=== PATIENT | female | born 1960 | race Caucasian/White ===

== ENCOUNTER 2020-05-18 14:54 | Outpatient (RCR) | payer MEDICAID ==
[~2020-05-18 14:54] MED LIST: CETI10TA; IBUP600T; SING10TA31; VENTAER
== END 2020-05-24 ==
LOC: M PT 14:54
PROVIDERS: ATTEND Nurse Practitioner
DX: D05.11 Intraductal carcinoma in situ of right breast (principal); Z90.13 Acquired absence of bilateral breasts and nipples

== ENCOUNTER → 2020-05-25 | Outpatient (REF) | payer MEDICAID | LOC: M LAB REF 12:27 | PROVIDERS: ATTEND Nurse Practitioner Adult Health | DX: R19.7 Diarrhea, unspecified (principal) ==

== ENCOUNTER 2020-06-20 03:26 | Emergency (ER) | payer MEDICAID ==
[~2020-06-20] VITALS: Ht 160 cm; Wt 73.6 kg
[2020-06-20] MEDS ORDERED: ZOFR4TAB16 PO (03:32)
[2020-06-20] MEDS ORDERED: [UNRECOGNIZED DRUG - OTHER] (03:32)
[2020-06-20] MEDS ORDERED: DIFI200T PO (03:32)
[2020-06-20] MEDS ORDERED: TUMS500C PO (03:32)
[2020-06-20] MEDS ORDERED: PEPC1TAB5 PO (03:32)
[2020-06-20] MEDS ORDERED: NS 1,000 ML IV ONE (03:45)
[2020-06-20 04:22] LABS: HEMATOCRIT 37.5 % (36.0-47.0); MEAN CORPUSCULAR HEMOGLOBIN 28.6 pg (27.0-33.0); MEAN CORPUSCULAR VOLUME 89.3 fl (80.0-96.0); PLATELET COUNT, AUTOMATED 227 10^3/uL (150-450); WHITE BLOOD COUNT 5.6 10^3/uL (4.0-10.0)
[2020-06-20] MEDS ORDERED: METOCLOPRAMIDE INJ 10MG/2ML VIAL (J2765 PER 1) IV ONE (04:30)
[2020-06-20] MEDS ORDERED: MORPHINE 4 MG/ML 1ML VIAL/SYRINGE (J2270) IV PRN (04:30)
[2020-06-20 04:38] LABS: ATYPICAL LYMPH 2 % (0-5); BASOPHILS 1 % (0-1); EOSINOPHILS 5 % (0-3); LYMPHOCYTES 31 % (16-44); MONOCYTES 4 % (0-5); NEUTROPHILS 57 % (28-66)
[2020-06-20 04:39] LABS: PLATELET ESTIMATE NORMAL (NORMAL)
[2020-06-20] MEDS ORDERED: ISOVUE-370 76% 100ML VIAL As Ordered ONE (04:48)
[2020-06-20 04:55] LABS: ALBUMIN 3.6 GM/DL (3.2-5.2); ALT/SGPT 41 U/L (12-78); BILIRUBIN,DIRECT 0.1 MG/DL (0.0-0.2); BILIRUBIN,TOTAL 0.4 MG/DL (0.2-1.0); CK-MB VALUE MASS 2.2 NG/ML (<3.6); CPK CREATINE PHOSPHOKINASE 297 U/L (26-192); LIPASE 146 U/L (73-393); MB/CK RELATIVE INDEX 0.74 (< OR =4); TROPONIN I < 0.02 NG/ML (< 0.10)
[2020-06-20] MEDS ORDERED: HYOSCYAMINE SULFATE 0.125 MG SUBL TABLET PO ONE (06:30)
[2020-06-20] MEDS ORDERED: OXYCODONE/APAP 5MG/325MG(BULK FOR ED) 1 TABLET PO ONE (06:30)
[2020-06-20] MEDS ORDERED: LEVS0.124 SL (06:30)
[2020-06-20 07:19] VITALS: BP 120/65
--- NOTE | 2020-06-21 05:32 | ECGEPIP ---
[facility] - ED Test Date: 2020-06-20 Pat Name: September Department: Room: - Gender: Female Tobacco Sorter: : 1960 Requested By: THONY King Order Number: [id number] Reading MD: Quan Estevez Measurements Intervals [place] Rate: 55 P: 14 NH: 133 QRS: 42 QRSD: 92 T: 54 QT: 418 QTc: 402 Interpretive Statements SINUS BRADYCARDIA NO PRIORS FOR COMPARISON Electronically Signed on 06-21-2020 5:31:50 EST by Quan Estevez
--- NOTE | 2020-06-21 08:20 | REP ---
INDICATION: MIGRATORY ABD PAIN, N/V. COMPARISON: None TECHNIQUE: Axial contrast-enhanced images from the lung bases to the pubic symphysis using 100 cc Isovue 370 intravenous contrast material. Coronal and sagittal reformations obtained. This CT examination was performed using the following dose reduction techniques: Automated exposure control, adjustment of mA and/or kv according to the patient's size, and the use of iterative reconstruction technique. FINDINGS: Gallbladder demonstrates wall thickening, mild pericholecystic fluid, and cholelithiasis consistent with acute cholecystitis. Liver demonstrates hepatosteatosis. Spleen, pancreas, bilateral adrenal glands and left kidney appear normal. Right kidney includes multiple nonobstructing calculi measuring up to 5 mm. The enteric system demonstrates small hiatal hernia at the gastroesophageal junction along with mild fecal stasis. No evidence for bowel obstruction or acute inflammatory process. Scattered colonic and sigmoid diverticula noted without acute diverticulitis. Pelvis demonstrates normal bladder and age-appropriate uterus/adnexa. No ascites. No free air. No significant adenopathy. Abdominal aorta without aneurysm or dissection. Musculoskeletal structures demonstrate degenerative changes. Lung bases are clear. IMPRESSION: 1. Findings consistent with acute cholecystitis. 2. Nonobstructing right renal calculi. 3. Diverticulosis without acute diverticulitis. 4. Small hiatal hernia. NOTE: Preliminary report from the overnight service sent to the ER at 06/20/2020 5:27 a.m. a.m. <Electronically signed by Gunnar Moore > 06/21/20 0812
--- NOTE | 2020-06-21 08:28 | REP ---
INDICATION: ruq abd pain. Repeat dictation. Preliminary report is provided at the time of the exam by charles NEAL. COMPARISON: Comparison CT study abdomen pelvis 06/20/2020.. TECHNIQUE: Right upper quadrant sonography. FINDINGS: Scanning through the right upper quadrant of the abdomen demonstrates multiple shadowing gallstones within the gallbladder. Gallbladder wall is not visibly thickened. There is no tenderness to scanning over the gallbladder observed. No pericholecystic fluid is seen. Evidence of fatty infiltration of the liver is observed. The common bile duct is somewhat dilated measuring 9 mm however. No choledocholithiasis is seen by sonography. The stones within the lumen of the gallbladder are large. Up to 2.0 cm. No intrahepatic ductal dilation is seen. Limited views of pancreas show no abnormality. There is no evidence of ascites or right renal abnormality. The right kidney measures 10.5 x 4.2 x 4.3 cm. . IMPRESSION: Cholelithiasis with multiple fairly large gallstones within the gallbladder. Fatty infiltration of the liver. Mild dilation of the common bile duct, 9 mm. Otherwise negative.. <Electronically signed by Earl Friedman > 06/21/20 0853
== END 2020-06-20 07:18 | disposition home or self-care (01) ==
LOC: M ED 03:26
DX: K80.00 Calculus of gallbladder with acute cholecystitis without obstruction (principal); N20.0 Calculus of kidney; K57.30 Diverticulosis of large intestine without perforation or abscess without bleeding; K44.9 Diaphragmatic hernia without obstruction or gangrene; R11.10 Vomiting, unspecified; R00.1 Bradycardia, unspecified; Z90.13 Acquired absence of bilateral breasts and nipples; Z88.0 Allergy status to penicillin; Z88.1 Allergy status to other antibiotic agents; Z91.010 Allergy to peanuts; Z79.899 Other long term (current) drug therapy
CPT/HCPCS: 74177; 76705; 80047; 80076; 82550; 82553; 83690; 85025; 93005; 93041; 96361; 96374; 96375; 99285; J2270; J2765; Q9967

== ENCOUNTER → 2020-11-13 | Outpatient (CLI) | payer MEDICAID ==
[~2020-11-13] MED LIST changes: +CETI-24 PO; +DIFI200T PO; +FAMO40TA3 PO; +LEVS0.124 SL; +MONT10TA10 PO; +PEPC1TAB5 PO; +TUMS500C PO; +ZOFR4TAB16 PO; +[UNRECOGNIZED DRUG - OTHER]
== END ==
LOC: M LABSMTC 09:05
PROVIDERS: ATTEND Anesthesiology
DX: Z01.818 Encounter for other preprocedural examination (principal); Z11.52 Encounter for screening for COVID-19

== ENCOUNTER 2020-11-18 08:33 | Day surgery (SDC) | payer MEDICAID ==
[~2020-11-18] VITALS: Ht 160 cm; Wt 69.8 kg
[~2020-11-18 08:33] MED LIST changes: +NS 1,000 ML IV ONE
[2020-11-18] MEDS ORDERED: propofoL 200 MG/20 ML VIAL As Ordered ONE ×3 (10:05→10:28)
[2020-11-18] MEDS ORDERED: LIDOCAINE 2% 100MG/5ML SDV (FOR ANES.) As Ordered ONE (10:05)
--- NOTE | 2020-11-18 10:32 | ROOR ---
Patient Name: September Procedure Date: 11/18/2020 10:11 AM Date of : 1960 Age: 60 Room: [facility] Gender: Female Note Status: Finalized Procedure: Colonoscopy Indications: High risk colon cancer surveillance: Personal history of colonic polyps Providers: Noah Alejo Jr, MD Referring MD: Jey Arreaga MD Requesting Provider: Medicines: Propofol per Anesthesia Complications: No immediate complications. Procedure: Pre-Anesthesia Assessment: - Prior to the procedure, a History and Physical was performed, and patient medications and allergies were reviewed. The patient is competent. The risks and benefits of the procedure and the sedation options and risks were discussed with the patient. All questions were answered and informed consent was obtained. Patient identification and proposed procedure were verified by the physician and the nurse in the pre-procedure area and in the procedure room. Mental Status Examination: alert and oriented. Airway Examination: normal oropharyngeal airway and neck mobility. Respiratory Examination: clear to auscultation. CV Examination: normal. ASA Grade Assessment: II - A patient with mild systemic disease. After reviewing the risks and benefits, the patient was deemed in satisfactory condition to undergo the procedure. The anesthesia plan was to use moderate sedation / analgesia (conscious sedation). Immediately prior to administration of medications, the patient was re-assessed for adequacy to receive sedatives. The heart rate, respiratory rate, oxygen saturations, blood pressure, adequacy of pulmonary ventilation, and response to care were monitored throughout the procedure. The physical status of the patient was re-assessed after the procedure. The Colonoscope was introduced through the anus and advanced to the cecum, identified by appendiceal orifice and ileocecal valve. The colonoscopy was performed without difficulty. The patient tolerated the procedure well. The quality of the bowel preparation was adequate. Findings: The rectum, descending colon, transverse colon, ascending colon, cecum, appendiceal orifice and ileocecal valve appeared normal. A few small and large-mouthed diverticula were found in the sigmoid colon. A diminutive polyp was found in the recto-sigmoid colon. The polyp was sessile. The polyp was removed with a jumbo cold forceps. Resection and retrieval were complete. Impression: - The rectum, descending colon, transverse colon, ascending colon, cecum, appendiceal orifice and ileocecal valve are normal. - Diverticulosis in the sigmoid colon. - One diminutive polyp at the recto-sigmoid colon, removed with a jumbo cold forceps. Resected and retrieved. Recommendation: - Discharge patient to home (ambulatory). - Repeat colonoscopy in 5 years for surveillance. - Telephone my office for pathology results in 1 week. Procedure Code(s): --- Professional --- 58162, Colonoscopy, flexible; with biopsy, single or multiple Diagnosis Code(s): --- Professional --- Z86.010, Personal history of colonic polyps K63.5, Polyp of colon K57.30, Diverticulosis of large intestine without perforation or abscess without bleeding CPT copyright 2019 [employer]. All rights reserved. The codes documented in this report are preliminary and upon machine finisher review may be revised to meet current compliance requirements. Noah Alejo MD Noah Alejo Jr, MD 11/18/2020 10:31:57 AM Electronically signed by Noah Alejo Jr, MD Number of Addenda: 0 Note Initiated On: 11/18/2020 10:11 AM Estimated Blood Loss: Estimated blood loss: none.
[2020-11-18 11:00] VITALS: BP 143/81
== END 2020-11-18 11:05 | disposition home or self-care (01) ==
LOC: M OPP 08:33
PROVIDERS: ATTEND Surgery
DX: Z86.010 Personal history of colon polyps (principal); K63.5 Polyp of colon; K57.30 Diverticulosis of large intestine without perforation or abscess without bleeding; K21.9 Gastro-esophageal reflux disease without esophagitis; J45.909 Unspecified asthma, uncomplicated; Z86.19 Personal history of other infectious and parasitic diseases; Z85.3 Personal history of malignant neoplasm of breast; Z88.0 Allergy status to penicillin; Z88.1 Allergy status to other antibiotic agents; Z91.010 Allergy to peanuts; Z79.899 Other long term (current) drug therapy

== ENCOUNTER 2020-12-29 07:29 | Inpatient (IN) | payer MEDICAID ==
[~2020-12-29] VITALS: Ht 160 cm; Wt 73.9 kg
[~2020-12-29 07:29] MED LIST changes: -NS 1,000 ML IV ONE
[2020-12-29] MEDS ORDERED: HYOS0.1258 PO (07:38)
[2020-12-29] MEDS ORDERED: ONDA4TAB6 PO (07:38)
[2020-12-29] MEDS ORDERED: OXYC1TAB23 PO (07:38)
[2020-12-29] MEDS ORDERED: NS 1,000 ML IV ONE (08:00)
[2020-12-29] MEDS ORDERED: MORPHINE 4 MG/ML 1ML VIAL/SYRINGE (J2270) IV ONE (08:00)
[2020-12-29] MEDS ORDERED: ONDANSETRON 4MG/2ML VIAL IV ONE (08:00)
[2020-12-29 08:01] LABS: BASO # 0.1 10^3/uL (0.0-0.2); BASO % 0.6 % (0.0-1.0); EOS # 0.1 10^3/uL (0.0-0.5); EOS % 0.6 % (0.0-3.0); HEMATOCRIT 41.8 % (36.0-47.0); HEMOGLOBIN 13.8 g/dl (12.0-15.5); LYMPH % 21.9 % (24.0-44.0); MEAN CORPUSCULAR VOLUME 87.8 fl (80.0-96.0); MONO # 0.5 10^3/uL (0.0-0.8); MONO % 5.6 % (2.0-8.0); NEUTROPHILS # 6.4 10^3/uL (1.5-8.5); NEUTROPHILS % 71.1 % (36.0-66.0); PLATELET COUNT, AUTOMATED 262 10^3/uL (150-450); RED BLOOD COUNT 4.76 10^6/uL (4.00-5.40); WHITE BLOOD COUNT 8.9 10^3/uL (4.0-10.0)
[2020-12-29] MEDS ORDERED: ISOVUE-370 76% 100ML VIAL As Ordered ONE (08:05)
--- NOTE | 2020-12-29 08:39 | REP ---
INDICATION: abdominal pain. COMPARISON: 06/20/2020 TECHNIQUE: Axial contrast-enhanced images from the lung bases to the pubic symphysis using 100 cc Isovue 370 intravenous contrast material. Coronal and sagittal reformations obtained. This CT examination was performed using the following dose reduction techniques: Automated exposure control, adjustment of mA and/or kv according to the patient's size, and the use of iterative reconstruction technique. FINDINGS: Liver demonstrates diffuse fatty infiltration without focal hepatic lesion. Spleen, pancreas, bilateral adrenal glands and left kidney are normal. Right kidney includes 1 cm hypodensity suggesting cyst and intrarenal calculi up to 8 mm without hydroureteronephrosis or obstructing ureteral calculus. Cholelithiasis noted without acute cholecystitis by CT. The enteric system including stomach, small, and large bowel appears normal. No evidence for obstruction or acute inflammatory process. Normal terminal ileum and appendix are identified in the right lower quadrant. Diverticulosis noted without acute diverticulitis. Pelvis demonstrates normal bladder and age-appropriate uterus/adnexa. No ascites. No free air. No intraperitoneal or retroperitoneal adenopathy. Abdominal aorta and vasculature appear normal. Musculoskeletal structures are intact and without acute osseous abnormality. IMPRESSION: 1. Hepatosteatosis. 2. Diverticulosis. 3. Cholelithiasis. 4. Right renal cyst and nonobstructing right renal calculi up to 8 mm. 5. No acute abdominopelvic pathology appreciated. <Electronically signed by Gunnar Moore > 12/29/20 0856
[2020-12-29 08:48] LABS: ALBUMIN 4.2 GM/DL (3.2-5.2); ALT/SGPT 31 U/L (12-78); BILIRUBIN,DIRECT 0.1 MG/DL (0.0-0.2); BILIRUBIN,TOTAL 0.5 MG/DL (0.2-1.0); CK-MB VALUE MASS < 1.0 NG/ML (<3.6); CPK CREATINE PHOSPHOKINASE 219 U/L (26-192); LIPASE 117 U/L (73-393); MB/CK RELATIVE INDEX 0.46 (< OR =4); TOTAL PROTEIN 8.1 GM/DL (6.4-8.2); TROPONIN I < 0.02 NG/ML (< 0.10)
--- NOTE | 2020-12-29 10:21 | REP ---
INDICATION: abdominal pain/age COMPARISON: None. TECHNIQUE: PA and lateral. FINDINGS: The mediastinum and cardiac silhouette are normal. The lung weir are clear and without acute consolidation, effusion, or pneumothorax. The skeletal structures are intact and normal. IMPRESSION: No acute cardiopulmonary process. <Electronically signed by Gunnar Moore > 12/29/20 1014
[2020-12-29] MEDS ORDERED: KETOROLAC 30 MG/ML 1ML VIAL IV ONE (11:25)
--- NOTE | 2020-12-29 11:55 | REP ---
INDICATION: abdominal pain. COMPARISON: 03/16/2011 TECHNIQUE: Transvesical and transvaginal imaging FINDINGS: The uterus measures 4.6 x 2.8 x 4 cm. The parenchymal echo pattern is unchanged. Once again, there is a small fibroid in the posterior uterus. The endometrial echo complex is smooth and unremarkable appearing measuring 1 mm in its greatest thickness. Urinary bladder measures 7 x 4 x 7 cm. The right ovary measures 1.6 x 0.6 x 1.3 cm and is within normal limits. The left ovary was not visualized transvesical air transvaginally. IMPRESSION: No significant change from the prior exam. Stable uterine myomatous change. No acute abnormality identified. <Electronically signed by Ion Beal > 12/29/20 [id number]
--- NOTE | 2020-12-29 12:23 | REP ---
INDICATION: abdominal pain. COMPARISON: 06/20/2020. TECHNIQUE: Real-time sonographic evaluation of right upper quadrant performed. FINDINGS: There are multiple gallstones in the gallbladder without evidence of gallbladder wall thickening. Sludge is also seen in the gallbladder. There is a 2 cm gallstone at the neck of the gallbladder which is not mobile.. The common bile duct is mildly dilated at 9 mm, similar to the prior study. Liver demonstrates diffuse increased echotexture suggesting diffuse fatty infiltration. No focal liver mass is seen. The visualized pancreas demonstrates no gross mass, pancreatic tail is not well seen due to overlying bowel gas. The right kidney demonstrates no hydronephrosis, with a normal size of 10.4 cm in length. The right renal pelvis appears mildly dilated and contains an a calculus 1.1 cm in diameter. A cyst in the upper pole right kidney measures 6 mm in diameter and a cyst in the lower pole measures 1.3 cm in diameter.No free fluid is seen. IMPRESSION: Sludge and multiple stones in the gallbladder, with no gallbladder wall thickening. There is a 2 cm nonmobile gallstone at the neck of the gallbladder. Once again the common bile duct is mildly dilated up to 9 mm, as on prior exam. No free fluid. Right renal pelvis is mildly dilated and contains a 1.1 cm calculus with no overt right hydronephrosis. <Electronically signed by Adam Morel > 12/29/20 [id number]
[2020-12-29] MEDS ORDERED: ACETAMINOPHEN TAB 650MG DOSE (2X325MG) PO PRN (14:45)
[2020-12-29] MEDS ORDERED: ONDANSETRON 4MG/2ML VIAL IV PRN (14:45)
[2020-12-29] MEDS ORDERED: KETOROLAC 30 MG/ML 1ML VIAL IV PRN (14:50)
[2020-12-29] MEDS ORDERED: CALC500T31 PO (14:55)
[2020-12-29] MEDS: LR 1,000 ML IV SCH (15:01)
[2020-12-29] MEDS: MORPHINE 4 MG/ML 1ML VIAL/SYRINGE (J2270) IV PRN ×2 (15:10→17:16)
[2020-12-29 17:03] VITALS: BP 145/62
[2020-12-29] MEDS ORDERED: MORPHINE 2 MG/ML 1ML VIAL (J2270) IV ONE (18:40)
[2020-12-29] MEDS ORDERED: MORPHINE 4 MG/ML 1ML VIAL/SYRINGE (J2270) IV PRN (20:00)
[2020-12-29] MEDS ORDERED: ERTAPENEM SODIUM 1 GM in NS MINI-BAG PLUS 50 ML IV SCH (21:00)
[2020-12-29 22:00] VITALS: BP 126/60
[2020-12-30] VITALS (9 sets, daily range): BP systolic 109–134; BP diastolic 57–70
[2020-12-30] MEDS: LR 1,000 ML IV SCH ×3 (01:10→21:05)
[2020-12-30] MEDS: KETOROLAC 30 MG/ML 1ML VIAL IV SCH ×3 (01:13→12:34)
[2020-12-30 06:24] LABS: BASO % 0.5 % (0.0-1.0); EOS # 0.1 10^3/uL (0.0-0.5); EOS % 1.8 % (0.0-3.0); HEMATOCRIT 37.4 % (36.0-47.0); HEMOGLOBIN 11.9 g/dl (12.0-15.5); LYMPH # 1.8 10^3/uL (1.5-5.0); MEAN CORPUSCULAR HGB CONC 31.8 g/dl (32.0-36.5); MEAN CORPUSCULAR VOLUME 91.2 fl (80.0-96.0); MONO # 0.7 10^3/uL (0.0-0.8); MONO % 9.9 % (2.0-8.0); NEUTROPHILS % 60.5 % (36.0-66.0); PLATELET COUNT, AUTOMATED 192 10^3/uL (150-450); WHITE BLOOD COUNT 6.6 10^3/uL (4.0-10.0)
[2020-12-30 06:56] LABS: ALBUMIN 3.2 GM/DL (3.2-5.2); ALT/SGPT 35 U/L (12-78); BILIRUBIN,TOTAL 0.7 MG/DL (0.2-1.0); BLOOD UREA NITROGEN 12 MG/DL (7-18); CALCIUM LEVEL 8.5 MG/DL (8.5-10.1); CARBON DIOXIDE LEVEL 25 MEQ/L (21-32); CHLORIDE LEVEL 110 MEQ/L (98-107); CREATININE FOR GFR 0.53 MG/DL (0.55-1.30); GLOMERULAR FILTRATION RATE > 60.0 (>51); GLUCOSE, FASTING 92 MG/DL (70-100); POTASSIUM SERUM 3.9 MEQ/L (3.5-5.1); SODIUM LEVEL 144 MEQ/L (136-145); TOTAL PROTEIN 6.3 GM/DL (6.4-8.2)
--- NOTE | 2020-12-30 08:24 | HPE ---
HISTORY AND PHYSICAL DATE OF ADMISSION: 12/29/2020 REASON FOR HOSPITALIZATION: Abdominal pain, probable acute cholecystitis. HISTORY OF PRESENT ILLNESS: The patient is a 60-year-old woman who had developed upper abdominal pain with associated vomiting at about 10:00 p.m. on the 28 of December. She reported having persistent pain overnight with some ongoing vomiting. She described the pain as severe but crampy with some waxing and waning. She denied any history of diarrhea. She did have some formed stool overnight. She did not have definite fevers or chills. She had no hematemesis. The pain persisted and became quite severe and she presented to the Emergency Department at approximately 7:30 in the morning of the 29 of December. She apparently was crying out and writhing in pain at the time of her presentation according to the P.A. in the E.R. She underwent evaluation including blood work and then had a CT scan of the abdomen and pelvis. She subsequently underwent an ultrasound of the pelvis as well as an ultrasound of the right upper quadrant. Her laboratory studies were largely unremarkable with a white count of 9,000 and 71% neutrophils. Chemistries showed normal electrolytes with the exception of glucose slightly elevated at 134 and she have liver function tests that were normal. Her CT scan of the abdomen and pelvis confirmed cholelithiasis. She had been seen in the Emergency Department once in May for a left severe and briefer episode of pain and at that time she had had an ultrasound that showed cholelithiasis as well. On her CT scan today, she was noted to have cholelithiasis but there were not definite changes of acute cholecystitis according to the radiologist. Some diverticulosis of the colon was noted without any evidence of diverticulitis and there was a small right renal calculus noted that was not felt to be obstructing. Her gallbladder ultrasound revealed multiple gallstones in the gallbladder with a non mobile 2 cm gallstone noted in the neck of the gallbladder. The radiologist did not feel that there was significant gallbladder wall thickening. The radiologist also noted that the right renal pelvis appeared mildly dilated and contained a 1.1 cm calculus without any overt right hydronephrosis. She had an ultrasound of the pelvis as well which showed no concerning findings with some stable myomatous changes in the uterus. I was consulted. MEDICATIONS: The patient's current medications include: 1. Calcium Carbonate 500 mg p.o. daily. 2. Cetirizine 10 mg p.o. daily. 3. Famotidine 40 mg p.o. daily. 4. Montelukast 10 mg p.o. daily. ALLERGIES: 1. Penicillins. 2. Quinolones. 3. Clarithromycin. 4. Peanuts. MEDICAL HISTORY: The patient's past medical history is significant for: 1. A history of asthma. 2. She has a history of some gastroesophageal reflux disease. 3. She had a recent colonoscopy that showed some diverticulosis. 4. 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 She apparently suffered from either infection or necrosis of the skin bilaterally requiring explantation of her implants and a long course of healing. SURGICAL HISTORY: The patient's past surgical history is significant for: 1. Her bilateral mastectomy and her subsequent reconstructions and explantation of her implants. 2. She also had a uterine ablation that is an endometrial ablation several years ago for heavy periods. FAMILY HISTORY: The patient's family history shows hypertension in her mother and COPD in her mother as well. REVIEW OF SYSTEMS: The patient's review of systems shows no history of severe headaches or seizures. She denies chest pain, palpitations, shortness of breath, wheezing, cough or sputum production. She has no history of peptic ulcer disease, GI bleed. She has had one prior episode of lesser discomfort approximately 6 months ago. There is no history of dysuria or hematuria, and she denies any prior history of renal stones. She has no history of DVT or pulmonary embolus. She denies any serious problems with the extremities. PHYSICAL EXAMINATION: VITAL SIGNS: In the Emergency Department her vital signs showed her to be afebrile with a pulse in the 60's, a blood pressure of 130/78 and normal pulse oximetry. SKIN: Warm and dry. HEENT: Sclerae are anicteric. Mucous membranes are moist. NECK: Supple without mass. HEART: Regular rate and rhythm. LUNGS: Clear to auscultation bilaterally. ABDOMEN: Flat. Bowel sounds present. No evident hernia. No tympani to percussion or tenderness to percussion. On palpation she had some moderate tenderness to direct palpation, particularly in the right upper quadrant, about at the level of the mid clavicular line, perhaps 3-5 cm inferior to the costal margin. No mass is appreciated. She has some lesser discomfort slightly lower in the abdomen and more toward the middle. EXTREMITIES: Without peripheral edema. Intact radial and pedal pulses. LABORATORY STUDIES: CBC showing a white count of 9, hemoglobin 14 with a hematocrit of 42% and 262,000 platelets. Differential shows 71% neutrophils and 22% lymphocytes. Chemistry profile shows sodium of 134, normal electrolytes. BUN and creatinine were normal and her other chemistries including her liver function tests are all normal. Lipase was 117. Urinalysis was without concerning findings other than a specific gravity greater than 1.060 with 1+ blood but a negative nitrite and leukocyte esterase. COVID serology was negative. IMAGING: Her imaging studies were as reported in the history of the present illness and were most notable for cholelithiasis with a large stone immobile in the gallbladder neck. Neither the CT nor ultrasound was interpreted as showing significant thickening of the gallbladder wall. IIMPRESSION: The patient's history and findings seem most consistent with acute cholecystitis. She has had pain for greater than 12 hours at the time of my exam and remains tender in the general region of the gallbladder. The laboratory studies are unremarkable but her imaging does show an immobile gallstone in the gallbladder neck. On my review of her imaging, I think there may be some very slight thickening in the gallbladder wall noted, particularly on the ultrasound. PLAN: The patient will be brought into the hospital for management of her severe pain which has required Morphine in the Emergency Department. She will be started on antibiotics. Because of the lack of significant gallbladder wall thickening on imaging and also the presence of the right renal stone with the suggestion that there might be some slight dilation of the renal pelvis on the right, I am going to obtain a nuclear biliary scan to confirm the diagnosis of acute cholecystitis. I counseled her that if the HIDA scan confirms non filling of the gallbladder that we should proceed with laparoscopic cholecystectomy. I advised her that I think this is the most likely outcome of her study. She had an opportunity to ask questions. She will be started on some Toradol and Morphine, both on a p.r.n. basis for pain management. She will receive some ongoing fluid replacement but will remain n.p.o. I will make some Zofran available in the event of persistent nausea. The patient had an opportunity to ask questions and these were answered to the best of my ability. She is in agreement with the plan.
--- NOTE | 2020-12-30 08:38 | IPNPDOC ---
Text Note Date of Service The patient was seen on 12/30/20. NOTE General surgery. Dr. Gamble The patient is a 60-year-old female admitted 12/29/2020 with acute cholecystitis. This morning, the patient states she has not had any nausea/vomiting, she has not used any Zofran. She states right upper quadrant pain is much improved, she feels sore this morning. Reports Toradol has been controlling pain. She currently is n.p.o. for HIDA scan this morning. Afebrile. VSS General. Awake and alert, resting in bed, appears in no acute distress. MMM S1-S2 regular rate rhythm Lungs are clear to auscultation bilaterally. Abdomen is flat, soft, bowel sounds present, mild tenderness with palpation in the right upper but no guarding or rebound. No edema WBC 6.6, hemoglobin 11.9, platelets 192. LFTs WNL. Assessment/plan Acute cholecystitis The patient is reviewed with Dr. Gamble. Continue n.p.o., HIDA scan is planned for this morning. Reports pain is improved. Denies nausea or vomiting. Continue IVF 100cc/hr Continue ertapenem IV. VS,Fishbone, I+O VS, Fishbone, I+O Laboratory Tests 12/30/20 05:59 Vital Signs Date Time Temp Pulse Resp B/P (MAP) Pulse Ox O2 Delivery O2 Flow Rate FiO2 12/30/20 06:00 97.2 47 16 116/62 (80) 98 Room Air I&O- Last 24 Hours up to 6 AM0 12/30/20 06:00 Intake Total 3400 ml Balance 3400 ml Nata Dsouza Dec 30, 2020 08:38
--- NOTE | 2020-12-30 12:34 | REP ---
INDICATION: probable acute cholecystitis. COMPARISON: Ultrasound 12/29/2020. TECHNIQUE/RADIOTRACER AND DOSE: Following the intravenous administration of 6.4 mCi technetium 99 M mebrofenin, multiple images of the right upper quadrant performed for a period of 60 minutes. FINDINGS: Gallbladder is not visualized by 60 minutes. This is compatible with acute or chronic cholecystitis. The referring clinician did not desire more delayed images. Biliary to bowel transit is visualized at 15 minutes post injection, with no scintigraphic evidence of common bile duct obstruction. IMPRESSION: Findings compatible with acute or chronic cholecystitis, with non visualization of the gallbladder 1 hour post injection. <Electronically signed by Adam Morel > 12/30/20 [id number]
[2020-12-30] MEDS ORDERED: fentaNYL 100 MCG/2 ML INJECTION (J3010) As Ordered ONE ×2 (15:25→17:04)
[2020-12-30] MEDS ORDERED: MIDAZOLAM INJ 2MG/2ML VIAL (J2250 PER 1MG) As Ordered ONE (15:25)
[2020-12-30] MEDS ORDERED: propofoL 200 MG/20 ML VIAL As Ordered ONE (15:27)
[2020-12-30] MEDS ORDERED: dexameTHASONE 4 MG/ML 1ML VIAL (J1100 PER 1MG) As Ordered ONE (15:27)
[2020-12-30] MEDS ORDERED: ROCURONIUM BROMIDE 50 MG/5 ML VIAL As Ordered ONE (15:27)
[2020-12-30] MEDS ORDERED: LIDOCAINE 2% 100MG/5ML SDV (FOR ANES.) As Ordered ONE (15:27)
[2020-12-30] MEDS ORDERED: BUPIVACAINE HCL 0.25% 30ML VIAL As Ordered ONE (15:43)
[2020-12-30] MEDS ORDERED: METOCLOPRAMIDE INJ 10MG/2ML VIAL (J2765 PER 1) As Ordered ONE (17:03)
[2020-12-30] MEDS ORDERED: ONDANSETRON 4MG/2ML VIAL As Ordered ONE (17:03)
[2020-12-30] MEDS ORDERED: KETOROLAC 60MG 2ML VIAL As Ordered ONE (17:04)
[2020-12-30] MEDS ORDERED: NORCO, ANEXSIA 5/325MG TABLET (HYDROcodone/ACETAMINOPHEN) PO PRN (18:00)
[2020-12-30] MEDS ORDERED: HYDROMORPHONE HCL 0.5 MG/ 0.5 ML SYRINGE (J1170 PER 1) IV PRN (18:15)
[2020-12-30] MEDS ORDERED: ONDANSETRON 4MG/2ML VIAL IV PRN (18:15)
[2020-12-30] MEDS ORDERED: fentaNYL 100 MCG/2 ML INJECTION (J3010) IV PRN (18:15)
[2020-12-30] MEDS ORDERED: oxyCODONE 5MG TAB PO PRN (18:15)
[2020-12-30] MEDS ORDERED: LR 1,000 ML IV SCH (18:15)
[2020-12-30] MEDS ORDERED: KETOROLAC 30 MG/ML 1ML VIAL IV PRN (18:35)
[2020-12-31] VITALS: BP 109/66
[2020-12-31 02:00] VITALS: BP 100/58
[2020-12-31 06:00] VITALS: BP 117/58
--- NOTE | 2020-12-31 06:27 | RO ---
OPERATIVE NOTE DATE OF OPERATION: 12/30/2020 PREOPERATIVE DIAGNOSIS: Cholelithiasis with acute cholecystitis. POSTOPERATIVE DIAGNOSIS: Cholelithiasis with acute cholecystitis. PROCEDURE: Laparoscopic cholecystectomy. SURGEON: Arben Gamble MD LIFE SCIENCE RESEARCH ASSISTANT: None. ANESTHESIA: General. INDICATIONS FOR THE PROCEDURE: Patient is a 60-year-old woman who presented to the emergency department on the 29 of December with a history of perhaps 12 hours of severe upper abdominal pain requiring narcotics for management. Imaging showed cholelithiasis but there was not significant gallbladder wall thickening identified. After, a CT scan and ultrasound confirmed what appeared to be a non-mobile stone in the gallbladder neck. She was also noted to have a stone in the right kidney though this did not appear to be obstructing. Her labs were normal. A HIDA scan was obtained on the morning of the 30 of December which confirmed non-filling of the gallbladder at one hour. She is now for a laparoscopic cholecystectomy for acute cholecystitis. DESCRIPTION OF PROCEDURE: The patient was brought to the operating room and placed on the table in a supine position. She was placed under general endotracheal anesthesia. The patient's abdomen was prepped and draped in a sterile fashion. A 0.25% Marcaine was infiltrated at the trocar sites as needed. A short supraumbilical midline incision was made and deepened to the fascia. A Veress needle was inserted and after a positive hanging drop test, the abdomen was inflated with carbon dioxide gas. When the abdomen was inflated, the fascia was scored at the midline with a scalpel and a 12-mm port was placed without difficulty. The laparoscope was inserted. The liver appeared normal. The stomach was quite distended with air. Visualized portions of the small and large bowel appeared normal and there was no evidence for Veress needle or trocar injury. Two 5-mm ports were placed in the right upper quadrant and a third 5-mm port was placed in the left upper quadrant. The patient was tilted to a reverse Trendelenburg positive and rolled slightly to the left. The gallbladder was tensely distended and markedly edematous. It was impossible to grasp the gallbladder so the gallbladder was aspirated using an aspirating needle. A moderate amount of watery, light greenish fluid was removed with nice decompression of the gallbladder though the wall remained quite thickened. The gallbladder was grasped and elevated. It was noted that she had marked edema in the area around the gallbladder neck and the nu hepatis. The peritoneum was opened in the area of the gallbladder neck using the hook cautery. Dissection was carried through the markedly edematous and indurated tissues around the gallbladder neck staying close to the gallbladder. With careful dissection, the cystic duct was identified. There was a large, inflamed node also noted at the gallbladder neck, which was dissected away to better expose the other tissues. Once the cystic duct had been completely identified, the cystic duct was doubly clipped with hemoclips and divided. With further dissection, two small arterial branches coming to the gallbladder were identified and these were clipped and divided. The gallbladder was then dissected free from the gallbladder bed through a thickened plane of marked edema. The gallbladder was not perforated. The gallbladder was placed in an Endopouch. The right upper quadrant was then copiously irrigated with saline. Final inspection showed no evidence of bleeding or bile leak. The patient was returned to a flat position. The abdomen was deflated and the trocars were all removed. The gallbladder was recovered through the supraumbilical site. It was necessary to extend the fascial incision to approximately 3 cm because of the quite large stones and the marked gallbladder wall thickening. The incision had been carried into what appeared to be a very small umbilical hernia defect. The fascia was then closed with a running suture of 2-0 PDS. The skin incisions were all closed with buried 4-0 Vicryl. Some additional local anesthesia was infiltrated about the ports. Steri-Strips and light 2x2 dressings were applied. The patient tolerated the procedure well without apparent complication. She was awakened in the operating room, extubated and moved to the recovery room in stable condition.
[2020-12-31] MEDS: LR 1,000 ML IV SCH (06:44)
[2020-12-31 06:46] LABS: ALT/SGPT 82 U/L (12-78); BILIRUBIN,TOTAL 0.5 MG/DL (0.2-1.0); BLOOD UREA NITROGEN 10 MG/DL (7-18); CALCIUM LEVEL 8.2 MG/DL (8.5-10.1); CARBON DIOXIDE LEVEL 25 MEQ/L (21-32); CHLORIDE LEVEL 109 MEQ/L (98-107); CREATININE FOR GFR 0.45 MG/DL (0.55-1.30); GLOMERULAR FILTRATION RATE > 60.0 (>51); GLUCOSE, FASTING 124 MG/DL (70-100); LIPASE 71 U/L (73-393); POTASSIUM SERUM 4.1 MEQ/L (3.5-5.1); SODIUM LEVEL 141 MEQ/L (136-145); TOTAL PROTEIN 5.6 GM/DL (6.4-8.2)
--- NOTE | 2020-12-31 08:44 | IPNPDOC ---
Text Note Date of Service The patient was seen on 12/31/20. NOTE General surgery. Dr. Gamble The patient is a 60-year-old female admitted 12/29/2020 with acute cholecystitis, status post laparoscopic cholecystectomy as per Dr. Gamble 12/30/2020. The patient is resting in bed, reports some discomfort around incisions otherwise states her pain is controlled. Tolerating full liquids this morning, denies nausea or vomiting. Afebrile. VSS. 96% 2 L nasal cannula. General. Awake and alert, resting in bed, appears in no acute distress. MMM S1-S2 regular rate rhythm Lungs are clear to auscultation bilaterally. Abdomen is flat, soft, some mild tenderness around incision sites but otherwise nontender with no guarding or rebound. Incision site dressings are C/D/I. No edema Assessment/plan Acute cholecystitis, status post laparoscopic cholecystectomy as per Dr. Gamble 12/30/2020. The patient is reviewed with Dr. Gamble. Tolerating full liquids, with order to advance as tolerated. Pain is controlled denies, nausea or vomiting. Continue IVF 100cc/hr with order to DC when tolerating regular diet. Encourage out of bed, ambulation. VS,Fishbone, I+O VS, Fishbone, I+O Laboratory Tests 12/31/20 05:58 Vital Signs Date Time Temp Pulse Resp B/P (MAP) Pulse Ox O2 Delivery O2 Flow Rate FiO2 12/31/20 06:00 97.3 50 16 117/58 (77) 96 Nasal Cannula 2.0 I&O- Last 24 Hours up to 6 AM 12/31/20 05:59 Intake Total 4110 ml Output Total 1300 ml Balance 2810 ml Nata Dsouza Dec 31, 2020 08:44
[2020-12-31] MEDS ORDERED: CETIRIZINE (ZyrTEC) 10 MG TAB PO ONE (14:20)
--- NOTE | 2020-12-31 16:10 | ECGEPIP ---
[facility] - ED Test Date: 2020-12-29 Pat Name: September Department: Room: - Gender: Female Outside Collector: MARIANELA : 1960 Requested By: HAO Ornelas PA-C Order Number: [id number] Reading MD: Rubén Luna Measurements Intervals [place] Rate: 44 P: -12 NH: 114 QRS: 137 QRSD: 92 T: 145 QT: 490 QTc: 418 Interpretive Statements Marked sinus bradycardia Low voltage QRS Nonspecific ST and T wave abnormality Lead II is not interpretable Likely similar to tracing done 06-20-20 Electronically Signed on 12-31-2020 16:10:23 EDT by Rubén Luna
== END 2020-12-31 16:34 | disposition home or self-care (01) | DRG 263 ==
LOC: M ED 07:29 → M SDC 07:30 → ENRESERV 16:14 → M MSPAV 17:02 → M SDC 12-30 17:58 → M MSPAV 12-30 17:59
PROVIDERS: ADMIT Surgery; ATTEND Surgery
PROC: 0FT44ZZ Resection of Gallbladder, Percutaneous Endoscopic Approach (ICD-10-PCS; principal; 2020-12-30 12:30)
DX: K80.00 Calculus of gallbladder with acute cholecystitis without obstruction (principal); J45.909 Unspecified asthma, uncomplicated; Z79.899 Other long term (current) drug therapy; Z88.0 Allergy status to penicillin; Z88.8 Allergy status to other drugs, medicaments and biological substances; Z91.010 Allergy to peanuts

== ENCOUNTER 2021-06-29 15:55 | Emergency (ER) | payer MEDICAID ==
[~2021-06-29] VITALS: Ht 160 cm; Wt 160.0 kg
[~2021-06-29 15:55] MED LIST changes: +CALC500T31 PO; +HYOS0.1258 PO; +ONDA4TAB6 PO; +OXYC1TAB23 PO
[2021-06-29] MEDS ORDERED: CITRTAB18 PO (16:06)
[2021-06-29 20:07] LABS: BASO % 0.5 % (0.0-1.0); EOS # 0.1 10^3/uL (0.0-0.5); EOS % 1.5 % (0.0-3.0); HEMATOCRIT 45.3 % (36.0-47.0); HEMOGLOBIN 14.6 g/dl (12.0-15.5); LYMPH % 34.8 % (24.0-44.0); MEAN CORPUSCULAR HGB CONC 32.2 g/dl (32.0-36.5); MEAN CORPUSCULAR VOLUME 90.1 fl (80.0-96.0); MONO # 0.6 10^3/uL (0.0-0.8); NEUTROPHILS # 4.9 10^3/uL (1.5-8.5); NEUTROPHILS % 56.1 % (36.0-66.0); PLATELET COUNT, AUTOMATED 269 10^3/uL (150-450); RED BLOOD COUNT 5.03 10^6/uL (4.00-5.40); WHITE BLOOD COUNT 8.7 10^3/uL (4.0-10.0)
[2021-06-29 20:35] LABS: BLOOD UREA NITROGEN 16 MG/DL (7-18); CALCIUM LEVEL 9.8 MG/DL (8.5-10.1); CARBON DIOXIDE LEVEL 27 MEQ/L (21-32); CHLORIDE LEVEL 105 MEQ/L (98-107); CREATININE FOR GFR 0.83 MG/DL (0.55-1.30); GLOMERULAR FILTRATION RATE > 60.0 (>51); GLUCOSE, FASTING 88 MG/DL (70-100); POTASSIUM SERUM 4.2 MEQ/L (3.5-5.1); SODIUM LEVEL 139 MEQ/L (136-145)
[2021-06-29 21:23] VITALS: BP 122/69
== END 2021-06-29 21:25 | disposition home or self-care (01) ==
LOC: M ED 15:55
DX: R31.9 Hematuria, unspecified (principal); N20.0 Calculus of kidney; Z90.10 Acquired absence of unspecified breast and nipple; Z90.49 Acquired absence of other specified parts of digestive tract; Z88.0 Allergy status to penicillin; Z88.1 Allergy status to other antibiotic agents; Z91.010 Allergy to peanuts

== ENCOUNTER → 2021-07-20 | Outpatient (REF) | payer MEDICAID ==
[~2021-07-20] MED LIST changes: +CITRTAB18 PO; -MONT10TA10 PO; +MONT10TA97 PO
[2021-07-20 13:24] LABS: APPEARANCE, URINE CLEAR (CLEAR); BACTERIA, URINE AUTO NEGATIVE (NEGATIVE); BILIRUBIN, URINE AUTO NEGATIVE (NEGATIVE); BLOOD, URINE BLOOD 2+ (NEGATIVE); COLOR, URINE YELLOW (YELLOW); GLUCOSE, URINE (UA) AUTO NEGATIVE (NEGATIVE); KETONE, URINE AUTO NEGATIVE (NEGATIVE); LEUKOCYTE ESTERASE, URINE AUTO NEGATIVE (NEGATIVE); MUCUS, URINE SMALL (NEGATIVE); NITRITE, URINE AUTO NEGATIVE (NEGATIVE); PROTEIN, URINE AUTO NEGATIVE (NEGATIVE); RBC, URINE AUTO 3 /HPF (0-3); SPECIFIC GRAVITY URINE AUTO 1.023 (1.002-1.035); SQUAMOUS EPITHELIAL CELL UR AU 0 /HPF (0-6); UROBILINOGEN, URINE AUTO 0.2 mg/dL (0.0-2.0); WBC, URINE AUTO 2 /HPF (0-3)
[2021-07-20 13:25] LABS: BASO % 0.4 % (0.0-1.0); EOS # 0.1 10^3/uL (0.0-0.5); EOS % 2.5 % (0.0-3.0); HEMOGLOBIN 13.8 g/dl (12.0-15.5); LYMPH # 1.7 10^3/uL (1.5-5.0); LYMPH % 32.8 % (24.0-44.0); MEAN CORPUSCULAR HEMOGLOBIN 29.2 pg (27.0-33.0); MEAN CORPUSCULAR HGB CONC 32.1 g/dl (32.0-36.5); MEAN CORPUSCULAR VOLUME 90.9 fl (80.0-96.0); MONO # 0.4 10^3/uL (0.0-0.8); NEUTROPHILS % 56.1 % (36.0-66.0); PLATELET COUNT, AUTOMATED 254 10^3/uL (150-450); RED BLOOD COUNT 4.73 10^6/uL (4.00-5.40); WHITE BLOOD COUNT 5.3 10^3/uL (4.0-10.0)
[2021-07-20 14:38] LABS: ALT/SGPT 43 U/L (12-78); BILIRUBIN,TOTAL 0.3 MG/DL (0.2-1.0); BLOOD UREA NITROGEN 14 MG/DL (7-18); CALCIUM LEVEL 9.7 MG/DL (8.5-10.1); CARBON DIOXIDE LEVEL 28 MEQ/L (21-32); CHLORIDE LEVEL 107 MEQ/L (98-107); CHOLESTEROL LEVEL 194 MG/DL (<200); CHOLESTEROL RISK RATIO 2.939 (<5); GLOMERULAR FILTRATION RATE > 60.0 (>51); GLUCOSE, FASTING 87 MG/DL (70-100); HDL CHOLESTEROL 66 MG/DL (>40); LDL CHOLESTEROL 103 MG/DL (<100); NON-HDL-C 128 MG/DL; POTASSIUM SERUM 4.4 MEQ/L (3.5-5.1); SODIUM LEVEL 139 MEQ/L (136-145); TOTAL PROTEIN 7.4 GM/DL (6.4-8.2); TRIGLYCERIDES LEVEL 125 MG/DL (<150)
== END ==
LOC: M LAB REF 12:07
PROVIDERS: ATTEND Family Medicine
DX: D05.11 Intraductal carcinoma in situ of right breast (principal); E78.1 Pure hyperglyceridemia; K21.9 Gastro-esophageal reflux disease without esophagitis; Z86.010 Personal history of colon polyps; R31.0 Gross hematuria

== ENCOUNTER → 2021-08-04 | Outpatient (CLI) | payer MEDICAID | LOC: M PLAIMG 09:37 | PROVIDERS: ATTEND Physician Assistant | DX: N20.0 Calculus of kidney (principal) ==

== ENCOUNTER → 2021-08-23 | Outpatient (REF) | payer MEDICAID ==
[2021-08-23 12:57] LABS: BASO % 0.7 % (0.0-1.0); EOS # 0.1 10^3/uL (0.0-0.5); EOS % 2.2 % (0.0-3.0); HEMATOCRIT 41.3 % (36.0-47.0); HEMOGLOBIN 13.4 g/dl (12.0-15.5); LYMPH # 2.1 10^3/uL (1.5-5.0); LYMPH % 35.2 % (24.0-44.0); MEAN CORPUSCULAR HEMOGLOBIN 29.5 pg (27.0-33.0); MEAN CORPUSCULAR HGB CONC 32.4 g/dl (32.0-36.5); MONO # 0.5 10^3/uL (0.0-0.8); MONO % 8.3 % (2.0-8.0); NEUTROPHILS # 3.2 10^3/uL (1.5-8.5); NEUTROPHILS % 53.4 % (36.0-66.0); PLATELET COUNT, AUTOMATED 254 10^3/uL (150-450); RED BLOOD COUNT 4.54 10^6/uL (4.00-5.40); WHITE BLOOD COUNT 5.9 10^3/uL (4.0-10.0)
[2021-08-23 14:12] LABS: BLOOD UREA NITROGEN 13 MG/DL (7-18); CALCIUM LEVEL 9.3 MG/DL (8.5-10.1); CARBON DIOXIDE LEVEL 28 MEQ/L (21-32); CHLORIDE LEVEL 110 MEQ/L (98-107); CREATININE FOR GFR 0.72 MG/DL (0.55-1.30); GLOMERULAR FILTRATION RATE > 60.0 (>51); GLUCOSE, FASTING 76 MG/DL (70-100); POTASSIUM SERUM 4.2 MEQ/L (3.5-5.1); SODIUM LEVEL 142 MEQ/L (136-145)
== END ==
LOC: M LAB REF 12:37
PROVIDERS: ATTEND Family Medicine
DX: Z01.818 Encounter for other preprocedural examination (principal); N20.0 Calculus of kidney

== ENCOUNTER → 2021-08-31 | Outpatient (REF) | payer MEDICAID ==
[2021-08-31 12:13] LABS: APPEARANCE, URINE CLEAR (CLEAR); BACTERIA, URINE AUTO NEGATIVE (NEGATIVE); BILIRUBIN, URINE AUTO NEGATIVE (NEGATIVE); BLOOD, URINE BLOOD 2+ (NEGATIVE); COLOR, URINE YELLOW (YELLOW); GLUCOSE, URINE (UA) AUTO NEGATIVE (NEGATIVE); KETONE, URINE AUTO NEGATIVE (NEGATIVE); LEUKOCYTE ESTERASE, URINE AUTO NEGATIVE (NEGATIVE); MUCUS, URINE SMALL (NEGATIVE); NITRITE, URINE AUTO NEGATIVE (NEGATIVE); PROTEIN, URINE AUTO NEGATIVE (NEGATIVE); RBC, URINE AUTO 6 /HPF (0-3); SPECIFIC GRAVITY URINE AUTO 1.023 (1.002-1.035); SQUAMOUS EPITHELIAL CELL UR AU 0 /HPF (0-6); WBC, URINE AUTO 1 /HPF (0-3)
== END ==
LOC: M LAB REF 11:17
PROVIDERS: ATTEND Family Medicine
DX: R31.9 Hematuria, unspecified (principal)

== ENCOUNTER → 2021-09-05 | Outpatient (CLI) | payer MEDICAID ==
[~2021-09-05] MED LIST changes: +OXYB5TAB10 PO
== END ==
LOC: M LABSMTC 11:12
PROVIDERS: ATTEND Anesthesiology
DX: Z01.818 Encounter for other preprocedural examination (principal); Z11.52 Encounter for screening for COVID-19

== ENCOUNTER 2021-09-09 07:09 | Day surgery (SDC) | payer MEDICAID ==
[~2021-09-09] VITALS: Ht 160 cm; Wt 73.1 kg
[~2021-09-09 07:09] MED LIST changes: -OXYB5TAB10 PO
[2021-09-09] MEDS ORDERED: LR 1,000 ML IV ONE (07:15)
[2021-09-09] MEDS ORDERED: propofoL 200 MG/20 ML VIAL As Ordered ONE (08:22)
[2021-09-09] MEDS ORDERED: MIDAZOLAM INJ 2MG/2ML VIAL (J2250 PER 1MG) As Ordered ONE (08:23)
[2021-09-09] MEDS ORDERED: fentaNYL 100 MCG/2 ML INJECTION As Ordered ONE (08:24)
[2021-09-09] MEDS ORDERED: LIDOCAINE 2% 100MG/5ML SDV (FOR ANES.) As Ordered ONE (08:29)
[2021-09-09] MEDS ORDERED: CONRAY-60 60% 50ML VIAL (Q9961) As Ordered ONE (08:40)
[2021-09-09] MEDS ORDERED: LevoFLOXacin IV 500 MG in IV 1 EA IV ONE (08:50)
[2021-09-09] MEDS ORDERED: OXYB5TAB10 PO (10:44)
[2021-09-09] MEDS ORDERED: OXYC1TAB23 PO (10:44)
[2021-09-09] MEDS ORDERED: METOCLOPRAMIDE INJ 10MG/2ML VIAL (J2765 PER 1) IV PRN (10:50)
[2021-09-09] MEDS ORDERED: HYDROMORPHONE HCL 0.5 MG/ 0.5 ML SYRINGE (J1170 PER 1) IV PRN (10:50)
[2021-09-09] MEDS ORDERED: oxyBUTYnin 5 MG TAB PO PRN (10:50)
[2021-09-09] MEDS ORDERED: ALBUTEROL SULFATE 2.5 MG/0.5 ML INH NEB SOLN INH PRN (10:50)
[2021-09-09] MEDS ORDERED: ONDANSETRON 4MG/2ML VIAL IV PRN (10:50)
[2021-09-09] MEDS ORDERED: MEPERIDINE INJ 25 MG/ML VIAL (J2175) IV PRN (10:50)
[2021-09-09] MEDS ORDERED: PERCOCET 5MG/325MG TAB PO PRN (10:50)
[2021-09-09] MEDS ORDERED: LR 1,000 ML IV SCH (10:50)
[2021-09-09 13:55] VITALS: BP 119/61
== END 2021-09-09 14:32 | disposition home or self-care (01) ==
LOC: M SDC 07:09
PROVIDERS: ATTEND Urology
DX: N20.0 Calculus of kidney (principal); K57.92 Diverticulitis of intestine, part unspecified, without perforation or abscess without bleeding; K21.9 Gastro-esophageal reflux disease without esophagitis; J45.909 Unspecified asthma, uncomplicated; Z79.899 Other long term (current) drug therapy; Z88.0 Allergy status to penicillin; Z88.1 Allergy status to other antibiotic agents; Z88.8 Allergy status to other drugs, medicaments and biological substances; Z91.010 Allergy to peanuts
CPT/HCPCS: 52356; 74420; 82365; C1769; C1894; C2617; J1956; J2250; J2405; J3010; Q9961

== ENCOUNTER → 2021-10-28 | Outpatient (CLI) | payer MEDICAID ==
[~2021-10-28] MED LIST changes: +OXYB5TAB10 PO
== END ==
LOC: M LABSMTC 10:25
PROVIDERS: ATTEND Anesthesiology
DX: Z01.812 Encounter for preprocedural laboratory examination (principal); Z20.822 Contact with and (suspected) exposure to COVID-19

== ENCOUNTER 2021-11-02 11:12 | Day surgery (SDC) | payer MEDICAID ==
[~2021-11-02] VITALS: Ht 160 cm; Wt 73.0 kg
[~2021-11-02 11:12] MED LIST changes: +LR 1,000 ML IV ONE
[2021-11-02] MEDS ORDERED: LIDOCAINE W/EPINEPHRINE 1% 20ML VIAL As Ordered ONE (14:03)
[2021-11-02] MEDS ORDERED: OXYMETAZOLINE 0.05% NASAL SPRAY (AFRIN) As Ordered ONE (14:03)
[2021-11-02] MEDS ORDERED: fentaNYL 100 MCG/2 ML INJECTION As Ordered ONE (14:09)
[2021-11-02] MEDS ORDERED: LIDOCAINE 2% 100MG/5ML SDV (FOR ANES.) As Ordered ONE (14:09)
[2021-11-02] MEDS ORDERED: METHYLENE BLUE 0.5% (5MG/ML) 10 ML AMP (PROVAYBLUE) As Ordered ONE (14:09)
[2021-11-02] MEDS ORDERED: dexameTHASONE 4 MG/ML 1ML VIAL (J1100 PER 1MG) As Ordered ONE (14:09)
[2021-11-02] MEDS ORDERED: propofoL 200 MG/20 ML VIAL As Ordered ONE (14:09)
[2021-11-02] MEDS ORDERED: ROCURONIUM BROMIDE 50 MG/5 ML VIAL As Ordered ONE (14:09)
[2021-11-02] MEDS ORDERED: MIDAZOLAM INJ 2MG/2ML VIAL (J2250 PER 1MG) As Ordered ONE (14:09)
[2021-11-02] MEDS ORDERED: COCAINE 4% 4ML NASAL SOLUTION BTL As Ordered ONE (14:28)
[2021-11-02] MEDS ORDERED: ePHEDrine SULFATE 25 MG/5 ML(5MG/ML) SYRINGE As Ordered ONE (14:38)
[2021-11-02] MEDS ORDERED: SUCCINYLCHOLINE 100 MG/5 ML SYRINGE (J0330) As Ordered ONE (14:46)
[2021-11-02] MEDS ORDERED: LIDOCAINE 2% JELLY 5ML TUBE As Ordered ONE (14:48)
[2021-11-02] MEDS ORDERED: fentaNYL 100 MCG/2 ML INJECTION IV PRN (15:20)
[2021-11-02] MEDS ORDERED: LR 1,000 ML IV SCH ×2 (15:20)
[2021-11-02] MEDS ORDERED: PERCOCET 5MG/325MG TAB PO PRN (15:20)
[2021-11-02] MEDS ORDERED: ANEXSIA, NORCO 7.5MG/325MG TABLET(HYDROCODONE/APAP) PO PRN (15:20)
[2021-11-02] MEDS ORDERED: ONDANSETRON 4MG/2ML VIAL IV PRN ×2 (15:20→15:25)
[2021-11-02 16:05] VITALS: BP 137/65
== END 2021-11-02 16:40 | disposition home or self-care (01) ==
LOC: M SDC 11:12
PROVIDERS: ATTEND Otolaryngology
DX: J33.9 Nasal polyp, unspecified (principal); K21.9 Gastro-esophageal reflux disease without esophagitis; J45.909 Unspecified asthma, uncomplicated; Z85.3 Personal history of malignant neoplasm of breast; Z91.010 Allergy to peanuts; Z88.0 Allergy status to penicillin; Z88.1 Allergy status to other antibiotic agents; Z79.899 Other long term (current) drug therapy
CPT/HCPCS: 30110; 88304; 88312; C9046; J0330; J1100; J2250; J3010; Q9968

== ENCOUNTER → 2022-03-22 | Outpatient (CLI) | payer MEDICAID ==
[~2022-03-22] MED LIST changes: -LR 1,000 ML IV ONE
== END ==
LOC: M PLAIMG 08:22
PROVIDERS: ATTEND Urology
DX: N20.0 Calculus of kidney (principal)

== ENCOUNTER → 2022-03-29 | Outpatient (CLI) | payer MEDICAID | LOC: M WUC 13:36 | PROVIDERS: ATTEND Registered Nurse | DX: M25.762 Osteophyte, left knee (principal) ==

== ENCOUNTER 2022-03-31 19:07 | Emergency (ER) | payer MEDICAID ==
[~2022-03-31] VITALS: Ht 160 cm; Wt 71.8 kg
[2022-03-31 19:08] VITALS: BP 135/64
[2022-03-31] MEDS ORDERED: KETOROLAC 60MG 2ML VIAL IM ONE (22:10)
== END 2022-04-01 00:04 | disposition home or self-care (01) ==
LOC: M ED 19:07
DX: M25.562 Pain in left knee (principal); J45.909 Unspecified asthma, uncomplicated; Z86.16 Personal history of COVID-19; Z88.0 Allergy status to penicillin; Z88.1 Allergy status to other antibiotic agents; Z90.13 Acquired absence of bilateral breasts and nipples; Z91.010 Allergy to peanuts; Z79.899 Other long term (current) drug therapy
CPT/HCPCS: 73564; 96372; 99283; J1885

== ENCOUNTER → 2022-05-22 | Outpatient (CLI) | payer MEDICAID | LOC: M RAD 09:19 | PROVIDERS: ATTEND Orthopaedic Surgery | DX: M17.12 Unilateral primary osteoarthritis, left knee (principal) ==

== ENCOUNTER → 2022-05-22 | Outpatient (REF) | payer MEDICAID | LOC: M SFHCDERM 17:06 | PROVIDERS: ATTEND Nurse Practitioner Family | DX: C44.311 Basal cell carcinoma of skin of nose (principal) ==

== ENCOUNTER → 2022-12-05 | Outpatient (REF) | payer MEDICAID ==
[2022-12-05 19:35] LABS: ALKALINE PHOSPHATASE 92 U/L (46-116); ALT/SGPT 40 U/L (7.0-40); AST/SGOT 34 U/L (<34); BILIRUBIN,TOTAL 0.4 MG/DL (0.3-1.2); BLOOD UREA NITROGEN 15 MG/DL (9-23); CALCIUM LEVEL 9.2 MG/DL (8.3-10.6); CARBON DIOXIDE LEVEL 25 MMOL/L (20-31); CHLORIDE LEVEL 106 MMOL/L (98-107); CHOLESTEROL LEVEL 164 MG/DL (<200); CHOLESTEROL RISK RATIO 2.81 (<5); CREATININE FOR GFR 0.71 MG/DL (0.55-1.30); GLOMERULAR FILTRATION RATE > 60.0 (>45); GLUCOSE, FASTING 82 MG/DL (74-106); HDL CHOLESTEROL 58.2 MG/DL (>40); NON-HDL-C 105.8 MG/DL; POTASSIUM SERUM 4.1 MMOL/L (3.5-5.1); SODIUM LEVEL 141 MMOL/L (136-145); TOTAL PROTEIN 6.8 G/DL (5.7-8.2); TRIGLYCERIDES LEVEL 114 MG/DL (<150)
== END ==
LOC: M LAB REF 17:13
PROVIDERS: ATTEND Family Medicine
DX: E78.1 Pure hyperglyceridemia (principal); K21.9 Gastro-esophageal reflux disease without esophagitis

== ENCOUNTER → 2023-09-06 | Outpatient (REF) | payer MEDICAID ==
[~2023-09-06] MED LIST changes: -OXYB5TAB10 PO; +OXYB5TAB14 PO
== END ==
LOC: M LAB REF 16:37
PROVIDERS: ATTEND Internal Medicine
DX: M15.9 Polyosteoarthritis, unspecified (principal)

== ENCOUNTER → 2023-10-08 | Outpatient (CLI) | payer MEDICAID | LOC: M WUC 11:46 | PROVIDERS: ATTEND Family Medicine | DX: M25.511 Pain in right shoulder (principal); M25.551 Pain in right hip; M25.561 Pain in right knee ==

== ENCOUNTER → 2023-11-08 | Outpatient (REF) | payer MEDICAID ==
[2023-11-08 17:45] LABS: BASO % 0.7 % (0.0-1.0); EOS # 0.2 10^3/uL (0.0-0.5); EOS % 3.1 % (0.0-3.0); HEMATOCRIT 38.5 % (36.0-47.0); HEMOGLOBIN 12.6 g/dl (12.0-15.5); LYMPH # 2.2 10^3/uL (1.5-5.0); LYMPH % 39.6 % (24.0-44.0); MEAN CORPUSCULAR HEMOGLOBIN 30.1 pg (27.0-33.0); MEAN CORPUSCULAR HGB CONC 32.7 g/dl (32.0-36.5); MEAN CORPUSCULAR VOLUME 92.1 fl (80.0-96.0); MONO # 0.5 10^3/uL (0.0-0.8); MONO % 8.5 % (2.0-8.0); NEUTROPHILS # 2.6 10^3/uL (1.5-8.5); NEUTROPHILS % 47.9 % (36.0-66.0); PLATELET COUNT, AUTOMATED 246 10^3/uL (150-450); RED BLOOD COUNT 4.18 10^6/uL (4.00-5.40); WHITE BLOOD COUNT 5.5 10^3/uL (4.0-10.0)
[2023-11-08 18:00] LABS: RHEUMATOID FACTOR QUANT 8.8 IU/ML (<14)
[2023-11-08 18:02] LABS: ALKALINE PHOSPHATASE 89 U/L (46-116); ALT/SGPT 34 U/L (7.0-40); AST/SGOT 29 U/L (<34); BILIRUBIN,TOTAL 0.5 MG/DL (0.3-1.2); BLOOD UREA NITROGEN 15 MG/DL (9-23); CALCIUM LEVEL 9.5 MG/DL (8.3-10.6); CARBON DIOXIDE LEVEL 28 MMOL/L (20-31); CHLORIDE LEVEL 103 MMOL/L (98-107); CREATININE FOR GFR 0.71 MG/DL (0.55-1.30); GLOMERULAR FILTRATION RATE > 60.0 (>45); GLUCOSE, FASTING 81 MG/DL (74-106); POTASSIUM SERUM 4.1 MMOL/L (3.5-5.1); SODIUM LEVEL 138 MMOL/L (136-145); TOTAL PROTEIN 6.8 G/DL (5.7-8.2)
[2023-11-08 18:03] LABS: THYROID STIMULATING HORMONE 2.169 uIU/ML (0.55-4.78)
[2023-11-08 18:05] LABS: ERYTHROCYTE SEDIMENTATION RATE 29 mm/hr (0-30)
== END ==
LOC: M LAB REF 16:36
PROVIDERS: ATTEND Family Medicine
DX: M25.50 Pain in unspecified joint (principal)

== ENCOUNTER → 2023-12-12 | Outpatient (REF) | payer MEDICAID ==
[~2023-12-12] MED LIST changes: +ONDA-282 PO; -ONDA4TAB6 PO
[2023-12-12 13:40] LABS: APPEARANCE, URINE CLEAR (CLEAR); BACTERIA, URINE AUTO NEGATIVE (NEGATIVE); BILIRUBIN, URINE AUTO NEGATIVE (NEGATIVE); BLOOD, URINE BLOOD 1+ (NEGATIVE); COLOR, URINE YELLOW (YELLOW); GLUCOSE, URINE (UA) AUTO NEGATIVE (NEGATIVE); KETONE, URINE AUTO NEGATIVE (NEGATIVE); LEUKOCYTE ESTERASE, URINE AUTO NEGATIVE (NEGATIVE); NITRITE, URINE AUTO NEGATIVE (NEGATIVE); PROTEIN, URINE AUTO NEGATIVE (NEGATIVE); RBC, URINE AUTO 3 /HPF (0-3); SPECIFIC GRAVITY URINE AUTO 1.013 (1.002-1.035); SQUAMOUS EPITHELIAL CELL UR AU 1 /HPF (0-6); UROBILINOGEN, URINE AUTO 0.2 mg/dL (0.0-2.0); WBC, URINE AUTO 1 /HPF (0-3)
[2023-12-12 18:37] LABS: HEMATOCRIT 41.1 % (36.0-47.0); HEMOGLOBIN 13.3 g/dl (12.0-15.5); MEAN CORPUSCULAR HEMOGLOBIN 30.1 pg (27.0-33.0); MEAN CORPUSCULAR HGB CONC 32.4 g/dl (32.0-36.5); PLATELET COUNT, AUTOMATED 311 10^3/uL (150-450); RED BLOOD COUNT 4.42 10^6/uL (4.00-5.40); WHITE BLOOD COUNT 6.4 10^3/uL (4.0-10.0)
[2023-12-12 18:44] LABS: ALBUMIN 4.3 G/DL (3.2-5.2); ALKALINE PHOSPHATASE 119 U/L (46-116); ALT/SGPT 34 U/L (7.0-40); AST/SGOT 23 U/L (<34); BILIRUBIN,TOTAL 0.6 MG/DL (0.3-1.2); BLOOD UREA NITROGEN 9 MG/DL (9-23); CALCIUM LEVEL 10.2 MG/DL (8.3-10.6); CARBON DIOXIDE LEVEL 28 MMOL/L (20-31); CHLORIDE LEVEL 106 MMOL/L (98-107); CREATININE FOR GFR 0.61 MG/DL (0.55-1.30); GLOMERULAR FILTRATION RATE > 60.0 (>45); GLUCOSE, FASTING 89 MG/DL (74-106); POTASSIUM SERUM 3.9 MMOL/L (3.5-5.1); SODIUM LEVEL 143 MMOL/L (136-145); TOTAL PROTEIN 7.4 G/DL (5.7-8.2)
== END ==
LOC: M LAB REF 13:01
PROVIDERS: ATTEND Family Medicine
DX: M15.9 Polyosteoarthritis, unspecified (principal); E78.1 Pure hyperglyceridemia; R30.0 Dysuria; Z86.010 Personal history of colon polyps

== ENCOUNTER 2023-12-18 15:03 | Outpatient (RCR) | payer MEDICAID | END 2023-12-23 | LOC: M PT 15:03 | PROVIDERS: ATTEND Family Medicine | DX: M25.511 Pain in right shoulder (principal) ==

== ENCOUNTER → 2024-05-16 | Outpatient (REF) | payer OTHER, MEDICAID ==
[~2024-05-16] MED LIST changes: -CALC500T31 PO; -HYOS0.1258 PO; +HYOS0.1297 PO; +OYST500T16 PO
[2024-05-16 13:12] LABS: BASO % 0.6 % (0.0-1.0); EOS # 0.2 10^3/uL (0.0-0.5); EOS % 3.5 % (0.0-3.0); HEMATOCRIT 39.7 % (36.0-47.0); HEMOGLOBIN 12.9 g/dl (12.0-15.5); LYMPH # 1.8 10^3/uL (1.5-5.0); LYMPH % 36.1 % (24.0-44.0); MEAN CORPUSCULAR HEMOGLOBIN 29.6 pg (27.0-33.0); MEAN CORPUSCULAR HGB CONC 32.5 g/dl (32.0-36.5); MEAN CORPUSCULAR VOLUME 91.1 fl (80.0-96.0); MONO # 0.5 10^3/uL (0.0-0.8); MONO % 10.1 % (2.0-8.0); NEUTROPHILS # 2.4 10^3/uL (1.5-8.5); NEUTROPHILS % 49.5 % (36.0-66.0); PLATELET COUNT, AUTOMATED 222 10^3/uL (150-450); RED BLOOD COUNT 4.36 10^6/uL (4.00-5.40); WHITE BLOOD COUNT 4.9 10^3/uL (4.0-10.0)
[2024-05-16 13:16] LABS: ALBUMIN 3.8 G/DL (3.2-5.2); ALKALINE PHOSPHATASE 79 U/L (35-104); ALT/SGPT 30 U/L (7.0-40); AST/SGOT 27 U/L (<34); BILIRUBIN,TOTAL 0.7 MG/DL (0.3-1.2); BLOOD UREA NITROGEN 19 MG/DL (9-23); CALCIUM LEVEL 9.6 MG/DL (8.3-10.6); CARBON DIOXIDE LEVEL 28 MMOL/L (20-31); CHLORIDE LEVEL 106 MMOL/L (98-107); CHOLESTEROL LEVEL 181 MG/DL (<200); CHOLESTEROL RISK RATIO 3.06 (<5); CREATININE FOR GFR 0.61 MG/DL (0.55-1.30); GLOMERULAR FILTRATION RATE > 60.0 (>45); GLUCOSE, FASTING 85 MG/DL (74-106); HDL CHOLESTEROL 59.1 MG/DL (>40); LDL CHOLESTEROL 103.7 MG/DL (<100); NON-HDL-C 121.9 MG/DL; POTASSIUM SERUM 3.9 MMOL/L (3.5-5.1); SODIUM LEVEL 142 MMOL/L (136-145); TOTAL PROTEIN 7.2 G/DL (5.7-8.2); TRIGLYCERIDES LEVEL 91 MG/DL (<150)
[2024-05-16 13:19] LABS: THYROID STIMULATING HORMONE 1.975 uIU/ML (0.55-4.78)
== END ==
LOC: M LAB REF 12:37
PROVIDERS: ATTEND Family Medicine
DX: M15.9 Polyosteoarthritis, unspecified (principal); Z90.13 Acquired absence of bilateral breasts and nipples; Z85.3 Personal history of malignant neoplasm of breast